=== PATIENT | female | born 1960 ===

== ENCOUNTER 2023-12-22 17:10 | Outpatient (REF) | payer SELFPAY ==
[2023-12-22 15:38] LABS: HCT 45.2 % (36.0-46.0); HGB 13.7 g/dL (11.2-15.7); MCH 20.9 pg (27.0-33.0); MCHC 30.3 % (32.0-36.0); MPV 10.9 fL (8.0-11.0); Platelet Count 345 10^3/uL (130-400); RBC 6.54 10^6/uL (3.93-5.22); RDW 16.9 % (11.7-14.6); RDW-SD 37.4 fL; WBC 7.97 10^3/uL (4.4-10.8)
[2023-12-22 15:59] LABS: MCV 69 fL (80-95)
[2023-12-22 16:02] LABS: Hemoglobin A1C 5.7 % (<5.7)
[2023-12-22 16:22] LABS: ALT 39 U/L (14-59); AST 27 U/L (15-37); Albumin 3.9 g/dL (3.4-5.0); Alkaline Phosphatase 130 U/L (46-116); Anion Gap 6.9 mmol/L (3-11); BUN 18 mg/dL (7-18); Bilirubin, Total 0.3 mg/dL (0.2-1.0); CO2 29.1 mmol/L (21.0-32.0); CREATININE 0.7 mg/dL (0.55-1.02); Calcium 10.4 mg/dL (8.5-10.1); Chloride 103 mmol/L (98-107); Estimated GFR 97.72 (mL/min/1.73m2); Glucose 93 mg/dL (74-106); Potassium 5.6 mmol/L (3.5-5.1); Sodium 139 mmol/L (136-145); TSH < 0.01 uIU/Ml (0.36-3.74); Vitamin B12 769 pg/mL (193-986)
[2023-12-22 16:40] LABS: FREE T4 1.43 ng/dL (0.76-1.46)
[2023-12-22 22:37] LABS: T3, Total 202 ng/dL (97-169)
[2023-12-25 09:53] LABS: Syphilis Serology (RPR) Negative (Negative)
== END 2023-12-22 17:11 | disposition home or self-care (01) ==
LOC: NCHCN 17:10
PROVIDERS: Referring Provider Family Medicine; Visit Provider Family Medicine
DX: E05.00 Thyrotoxicosis with diffuse goiter without thyrotoxic crisis or storm (principal); G60.8 Other hereditary and idiopathic neuropathies; R79.89 Other specified abnormal findings of blood chemistry
CPT/HCPCS: 80053; 85027; 82607; 83036; 84439; 84443; 84480; 86592

== ENCOUNTER 2024-01-15 17:41 | Outpatient (REF) | payer SELFPAY ==
[2024-01-15 19:06] LABS: Anion Gap 5.7 mmol/L (3-11); BUN 22 mg/dL (7-18); CO2 27.3 mmol/L (21.0-32.0); CREATININE 1.1 mg/dL (0.55-1.02); Calcium 9.8 mg/dL (8.5-10.1); Chloride 105 mmol/L (98-107); Estimated GFR 56.81 (mL/min/1.73m2); Glucose 122 mg/dL (74-106); Potassium 5.5 mmol/L (3.5-5.1); Sodium 138 mmol/L (136-145); TSH (W/Ref FT4) 0.86 uIU/mL (0.36-3.74)
[2024-01-16 19:15] LABS: Parathyroid Hormone,Intact 64 pg/mL (19-88)
[2024-01-17 11:14] LABS: Kappa Free Light Chain 3.81 mg/dL (0.33-1.94)
[2024-01-17 15:09] LABS: Albumin g/dL 4.5 g/dL (3.6-5.2); Immunotyping, Serum (See Note); Total Protein 7.9 g/dL (6.3-8.2)
== END 2024-01-15 17:42 | disposition home or self-care (01) ==
LOC: NCHCN 17:41
PROVIDERS: Visit Provider Family Medicine
DX: E83.52 Hypercalcemia (principal); E05.00 Thyrotoxicosis with diffuse goiter without thyrotoxic crisis or storm
CPT/HCPCS: 80048; 83883; 83970; 84155; 84165; 84443; 86320